=== PATIENT | male | born 1975 | race African-American/Black ===

== ENCOUNTER 2018-05-14 11:54 | Emergency (ER) | payer OTHER ==
--- NOTE | 2018-05-14 12:15 | PHYS DOC ---
Adult General Chief Complaint Chief Complaint: FOOT INJURY PAIN HPI HPI 42-year-old male presents with left foot pain. The patient is an employee at [employer]. He was walking down the stairs when he missed the last stair hit his left foot rolled and inverted. The patient fell to the ground. He denies hitting his head or losing consciousness. At this time, only pain that he has some left top foot and lateral foot. He previously rolled this same ankle in the past. He denies any other injuries or complaints. Review of Systems Review of Systems Constitutional: Denies fever or chills [] Eyes: Denies change in visual acuity, redness, or eye pain [] HENT: Denies nasal congestion or sore throat [] Respiratory: Denies cough or shortness of breath [] Cardiovascular: No additional information not addressed in HPI [] GI: Denies abdominal pain, nausea, vomiting, bloody stools or diarrhea [] : Denies dysuria or hematuria [] Musculoskeletal: Left foot pain [] Integument: Denies rash or skin lesions [] Neurologic: Denies headache, focal weakness or sensory changes [] Endocrine: Denies polyuria or polydipsia [] All other systems were reviewed and found to be within normal limits, except as documented in this note. Allergies Allergies Allergies Coded Allergies Type Severity Reaction Last Updated Verified fentanyl Allergy Mild Hives 05/14/18 Yes Physical Exam Physical Exam Constitutional: Well developed, well nourished, no acute distress, non-toxic appearance. [] HENT: Normocephalic, atraumatic, bilateral external ears normal, oropharynx moist, no oral exudates, nose normal. [] Eyes: PERRLA, EOMI, conjunctiva normal, no discharge. [] Neck: Normal range of motion, no tenderness, supple, no stridor. [] Cardiovascular:Heart rate regular rhythm, no murmur [] Lungs & Thorax: Bilateral breath sounds clear to auscultation [] Abdomen: Bowel sounds normal, soft, no tenderness, no masses, no pulsatile masses. [] Skin: Warm, dry, no erythema, no rash. [] Back: No tenderness, no CVA tenderness. [] Extremities: Tenderness over the left midfoot on the lateral foot. No ecchymosis or obvious deformity. No swelling.[] Neurologic: Alert and oriented X 3, normal motor function, normal sensory function, no focal deficits noted. [] Psychologic: Affect normal, judgement normal, mood normal. [] EKG EKG [] Radiology/Procedures Radiology/Procedures [] Impressions: EXAM: Left foot, 3 views. HISTORY: Fall downstairs. COMPARISON: None. FINDINGS: 3 views of the left foot are obtained. There is no fracture, dislocation or subluxation. There is a small plantar spur. IMPRESSION: No acute osseous finding. Electronically signed by: Jana Wilson MD (05/14/2018 12:25 PM) [facility] DICTATED AND SIGNED BY: JANA WILSON MD DATE: 05/14/18 1224 CC: SUKHWINDER SUNG DO; PCP,MANJULA ~ Course & Med Decision Making Course & Med Decision Making Pertinent Labs and Imaging studies reviewed. (See chart for details) The patient's x-rays negative for fracture. I believe he does has a midfoot sprain. He is stable for discharge at this time. [] Dragon Disclaimer Dragon Disclaimer This electronic medical record was generated, in whole or in part, using a voice recognition dictation system. Departure Departure: Referrals: PCPMANJULA (PCP) SUKHWINDER SUNG DO May 14, 2018 12:15
--- NOTE | 2018-05-14 12:29 | RAD ---
EXAM: Left foot, 3 views. HISTORY: Fall downstairs. COMPARISON: None. FINDINGS: 3 views of the left foot are obtained. There is no fracture, dislocation or subluxation. There is a small plantar spur. IMPRESSION: No acute osseous finding. Electronically signed by: Jana Wilson MD (05/14/2018 12:25 PM) [facility]
[2018-05-14 13:04] VITALS: BP 142/98
[2018-05-14] MEDS ORDERED: NAPROXEN 500 MG TABLET PO ONE (13:25)
== END 2018-05-14 13:05 | disposition home or self-care (01) ==
LOC: ER 11:54
DX: M79.672 Pain in left foot (principal); G89.11 Acute pain due to trauma; Z88.8 Allergy status to other drugs, medicaments and biological substances; W10.8XXA Fall (on) (from) other stairs and steps, initial encounter; Y93.01 Activity, walking, marching and hiking; Y92.89 Other specified places as the place of occurrence of the external cause; Y99.0 Civilian activity done for income or pay
CPT/HCPCS: 73630; 99284